=== PATIENT | male | born 1950 | race Caucasian/White ===

== ENCOUNTER 2018-02-08 13:36 | Emergency (ER) | payer OTHER ==
[~2018-02-08] VITALS: Ht 170.2 cm; Wt 86.2 kg
[2018-02-08 13:50] VITALS: Ht 170.2 cm; Wt 86.2 kg
[2018-02-08 15:22] LABS: microscopic required? YES; urine erythrocyte TRACE (NEGATIVE)
[2018-02-08 15:24] LABS: BASOPHIL % 0.4 % (0-2); PLATELET COUNT 241 x10^3mcL (130-400); RED CELL DISTRIBUTION WIDTH 13.7 % (11.5-14.5)
[2018-02-08 15:30] LABS: CALCIUM 8.8 mg/dL (8.5-10.1); CARBON DIOXIDE 22.2 mmol/L (21-32); CHLORIDE SERUM 104 mmol/L (98-107); CREATININE SERUM 0.7 mg/dL (0.7-1.3); GFR1 > 60 mL/min; GLUCOSE SERUM 98 mg/dL (74-106); POTASSIUM SERUM 3.8 mmol/L (3.5-5.1); SODIUM SERUM 136 mmol/L (136-145)
[2018-02-08 15:36] LABS: ALBUMIN 3.4 g/dL (3.4-5.0); ALKALINE PHOSPHATASE 88 U/L (46-116); ALT/SGPT 37 U/L (16-63); AST/SGOT 20 U/L (15-37); BILIRUBIN TOTAL 0.4 mg/dL (0.20-1.00); CHOLESTEROL 187 mg/dL (<200); TOTAL PROTEIN, SERUM 7.3 g/dL (6.4-8.2)
[2018-02-08 15:41] LABS: HDL CHOLESTEROL 32 mg/dL (40-60)
[2018-02-08 16:59] VITALS: BP 180/85
== END 2018-02-08 16:59 | disposition home or self-care (01) ==
LOC: ED 13:36
PROVIDERS: Emergency Medicine
DX: J18.9 Pneumonia, unspecified organism (principal); Z88.0 Allergy status to penicillin
CPT/HCPCS: 82962; 83880; 87804; J2001; J7030

== ENCOUNTER 2019-12-30 16:03 | Emergency (ER) | payer OTHER ==
[~2019-12-30] VITALS: Ht 170.2 cm; Wt 92.1 kg
[2019-12-30 16:28] VITALS: Ht 170.2 cm; Wt 92.1 kg
[2019-12-30 18:43] VITALS: BP 129/72
== END 2019-12-30 18:55 | disposition home or self-care (01) ==
LOC: ED 16:03
DX: N39.0 Urinary tract infection, site not specified (principal); R05 Cough; R19.7 Diarrhea, unspecified